=== PATIENT | female | born 1995 | race Asian ===

== ENCOUNTER 2019-11-24 14:58 | Emergency (ER) | payer OTHER ==
[~2019-11-24] VITALS: Ht 167.6 cm; Wt 72.6 kg
[2019-11-24 16:55] LABS: PLATELET COUNT 329 K/uL (152-353)
[2019-11-24 17:11] LABS: POTASSIUM 3.3 mmol/L (3.6-5.2)
[2019-11-25 03:50] VITALS: BP 137/89; TEMP 98.6
== END 2019-11-25 03:50 | disposition still patient (30) ==
LOC: ED 14:58
PROVIDERS: Family Medicine
DX: F31.89 Other bipolar disorder (principal); R46.89 Other symptoms and signs involving appearance and behavior; R45.851 Suicidal ideations
CPT/HCPCS: 80053; 80307; 80329; 81000; 81025; 85027; 96372; 99285; J3486

== ENCOUNTER 2022-03-30 12:09 | Emergency (ER) | payer OTHER ==
[~2022-03-30] VITALS: Ht 167.6 cm; Wt 81.6 kg
[2022-03-30 15:32] LABS: PLATELET COUNT 247 K/uL (152-353)
== END 2022-03-30 18:10 | disposition other institution (70) ==
LOC: ED 12:09
PROVIDERS: Emergency Medicine Emergency Medical Services
DX: R44.0 Auditory hallucinations (principal)
CPT/HCPCS: 36415; 80053; 80143; 80179; 80307; 80320; 81002; 81025; 85027; 96372; 99283; J2060

== ENCOUNTER 2022-05-18 15:05 | Emergency (ER) | payer OTHER ==
[~2022-05-18] VITALS: Ht 165.1 cm; Wt 61.2 kg
[2022-05-18 15:49] LABS: PLATELET COUNT 290 K/uL (152-353)
[2022-05-18 15:59] LABS: POTASSIUM 3.9 mmol/L (3.6-5.2)
[2022-05-19 08:00] VITALS: TEMP 97.4
[2022-05-19 11:52] VITALS: BP 135/84
== END 2022-05-19 11:55 | disposition other institution (70) ==
LOC: ED 15:05
PROVIDERS: Emergency Medicine Emergency Medical Services
DX: R45.850 Homicidal ideations (principal); F20.89 Other schizophrenia; Z11.52 Encounter for screening for COVID-19
CPT/HCPCS: 80053; 80143; 80179; 80307; 80320; 81000; 81025; 85027; 87635; 96372; 99285; J1200; J1630; J2060; U0003